=== PATIENT | female | born 1985 | race Caucasian/White ===

== ENCOUNTER 2018-08-06 09:48 | Emergency (ER) | payer OTHER | END 2018-08-06 11:14 | disposition home or self-care (01) | LOC: FTE 09:48 | DX: S93.602A Unspecified sprain of left foot, initial encounter (principal); S99.911A Unspecified injury of right ankle, initial encounter; J45.909 Unspecified asthma, uncomplicated; W18.40XA Slipping, tripping and stumbling without falling, unspecified, initial encounter; Y92.9 Unspecified place or not applicable | CPT/HCPCS: 73610; 73610-RT; 73630-LT; 99284-25 ==